=== PATIENT | female | born 1990 | race Caucasian/White ===

== ENCOUNTER 2020-03-12 09:23 | Emergency (ER) | payer BC ==
--- NOTE | 2020-03-12 09:51 | EDM.PDOC ---
ED HPI GENERAL MEDICAL PROBLEM - General Chief Complaint: Skin Complaint Stated Complaint: R BREAST PAIN, MASTITIS? Time Seen by Provider: 03/12/20 09:50 Source of Information: Reports: Patient History Limitations: Reports: No Limitations - History of Present Illness INITIAL COMMENTS - FREE TEXT/NARRATIVE: 29-year-old female with right breast tenderness for the past several hours. She is actively breast-feeding her child, this is her fourth child and she has had mastitis twice previously with other children. Low-grade fever and mild chills but after placing some moist heat on the breast she did not get significant relief and its becoming more firm. It is acting just like her past mastitis problems. 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 Denies: Malaise HEENT: Reports: No Symptoms Respiratory: Denies: Shortness of Breath Cardiovascular: Denies: Chest Pain GI/Abdominal: Denies: Nausea, Vomiting Skin: Denies: Erythema (No erythema of the breast at this point) Neurological: Reports: No Symptoms ED EXAM, SKIN/RASH Exam: See Below Exam Limited By: No Limitations General Appearance: Alert, No Apparent Distress Head: Atraumatic Neck: Supple Respiratory/Chest: No Respiratory Distress Neurological: Alert, Oriented Psychiatric: Normal Affect, Normal Mood Skin: Warm, Dry Comments: Breast exam reveals some firmness and tenderness just above and medial to the areole of the right breast. It is not reddened or warm at this point. Course - Vital Signs Last Recorded V/S: Last Vital Signs Temp 99.3 F 03/12/20 09:39 Pulse 71 03/12/20 09:39 Resp 20 03/12/20 09:39 BP 119/71 03/12/20 09:39 Pulse Ox 100 03/12/20 09:39 - Re-Assessments/Exams Free Text/Narrative Re-Assessment/Exam: 03/12/20 10:00 Patient will be placed on Augmentin 875 twice daily for at least 5 days. Continue with moist heat to the breast and return if worsening despite treatment. Departure - Departure Time of Disposition: 10:11 Disposition: Home, Self-Care 01 Clinical Impression: Mastitis, right, acute - Discharge Information Instructions: Mastitis Referrals: PCP,None [Primary Care Provider] - Forms: ED Department Discharge Care Plan Goals: Take antibiotic twice daily for at least 5 days, continue with moist warm compresses and return if worsening despite treatment. Sepsis Event Note - Evaluation Sepsis Screening Result: No Definite Risk - Focused Exam Vital Signs: Vital Signs Temp Pulse Resp BP Pulse Ox 03/12/20 09:39 99.3 F 71 20 119/71 100 Date Exam was Performed: 03/12/20 Time Exam was Performed: 13:10
== END 2020-03-12 10:11 | disposition home or self-care (01) ==
LOC: JP.ED 09:23
DX: N61.0 Mastitis without abscess (principal)
CPT/HCPCS: 99283

== ENCOUNTER 2021-07-06 23:52 | Inpatient (IN) | payer BC ==
[2021-07-07] MEDS ORDERED: Penicillin G Potassium 5 MILLUNITS in Sodium Chloride 0.9% 50 ML IV ONE (00:14)
[2021-07-07] MEDS ORDERED: Lactated Ringers 500 ML IV ONE (00:38)
[2021-07-07] MEDS ORDERED: Sodium Chloride 0.9% 10 ML Syringe FLUSH PRN (00:38)
[2021-07-07] MEDS ORDERED: Ondansetron 4 MG/2 ML SDV IV PRN (00:38)
--- NOTE | 2021-07-07 00:46 | PCM.LDHP ---
L&D History of Present Illness - General Date of Service: 07/07/21 Admit Problem/Dx: Patient Status Order with Admit Dx/Problem 07/07/21 00:38 Patient Status [ADT] Routine Admission Diagnosis/Problem Admission Diagnosis/Problem Active labor Source of Information: Patient History Limitations: Reports: No Limitations - History of Present Illness Introduction:: 07/07/21 Patient started nestor at home around 1800 last night. She is a at 40 5/7 weeks of . She has had an uncomplicated . She entered care late around 20 weeks due to being a healthy lady with multiple pregnancies and desire for less intervention. She is GBS positive. HIV/hep B/C/RPR all NR. She is rubella non immune but declines all vaccinations. She is A positive blood type. She has had 4 previous vaginal births all uncomplicated. 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): - Past Surgical History HEENT Surgical History: Reports: Oral Surgery Social & Family History - Tobacco Use Tobacco Use Status *Q: Never Tobacco User Tobacco Use Within Last Twelve Months: No - Caffeine Use Caffeine Use: Reports: Soda - Alcohol Use Alcohol Use History: No Alcohol Use in Last Twelve Months: No H&P Review of Systems - Review of Systems: Review Of Systems: See Below General: Reports: No Symptoms HEENT: Reports: No Symptoms Pulmonary: Reports: No Symptoms Cardiovascular: Reports: No Symptoms Gastrointestinal: Reports: No Symptoms Genitourinary: Reports: No Symptoms Musculoskeletal: Reports: No Symptoms Skin: Reports: No Symptoms Psychiatric: Reports: No Symptoms Neurological: Reports: No Symptoms Hematologic/Lymphatic: Reports: No Symptoms Immunologic: Reports: No Symptoms L&D Exam - Exam Exam: See Below - OB Specific Contraction Duration (sec): 60-80 Contraction Frequency (min): 2-3 Contraction Intensity: Strong Movement: Active Heart Tones: Present Heart Tones per Min: 130 Heart Rate (FHR) Variability: Moderate (6-25 bpm) (broken strip due to movement of mother) Presentation: Vertex Estimated Weight: 9 lb - Exam General: Alert, Oriented HEENT: PERRLA, Conjunctiva Clear, Mucosa Moist & [place], Pupils Equal, Pupils Reactive Neck: Supple, Trachea Midline Lungs: Clear to Auscultation, Normal Respiratory Effort Cardiovascular: Regular Rate, Regular Rhythm GI/Abdominal Exam: Normal Bowel Sounds, Soft, Pelvis Stable Genitourinary: Normal external exam, Cervical dilitation Back Exam: Normal Inspection, Full Range of Motion Extremities: Normal Inspection, No Pedal Edema Skin: Warm, Dry, Intact Neurological: Cranial Nerves Intact, Reflexes Equal Bilateral Psychiatric: Alert, Normal Affect, Normal Mood - Problem List (1) Term SNOMED Code(s): 73041414 ICD Code: Z34.90 - ENCNTR FOR SUPRVSN OF NORMAL , UNSP, UNSP TRIMESTER Status: Acute Current Visit: Yes (2) Positive GBS test SNOMED Code(s): 224009098, 522345027 ICD Code: B95.1 - STREPTOCOCCUS, GROUP B, CAUSING DISEASES CLASSD ELSWHR Status: Acute Current Visit: Yes Problem List Initiated/Reviewed/Updated: Yes Orders Last 24hrs: Active Orders 24 hr Category Date Time Status Patient Status [ADT] Routine ADT 07/07/21 00:38 Active Antiembolic Devices [RC] .Routine Care 07/07/21 00:40 Active Communication Order [RC] ASDIRECTED Care 07/07/21 00:38 Active Heart Tones [RC] PER UNIT ROUTINE Care 07/07/21 00:38 Active Notify Provider Vital Signs [RC] PRN Care 07/07/21 00:39 Active Notify Provider [RC] PRN Care 07/07/21 00:38 Active Up ad Sheri [RC] ASDIRECTED Care 07/07/21 00:38 Active VTE/DVT Education [RC] Click to Edit Care 07/07/21 00:40 Active Vital Signs [RC] PER UNIT ROUTINE Care 07/07/21 00:38 Active Regular Diet [DIET] Diet 07/07/21 Breakfast Active CBC W/O DIFF,HEMOGRAM [HEME] Routine Lab 07/07/21 00:38 Ordered CORONAVIRUS COVID-19 RAPID [MOLEC] Routine Lab 07/07/21 00:40 Ordered DRUG SCREEN, URINE [URCHEM] Routine Lab 07/07/21 00:40 Ordered UA W/MICROSCOPIC [URIN] Routine Lab 07/07/21 00:39 Ordered Lactated Ringers [Ringers, Lactated] 500 ml Med 07/07/21 00:38 Ordered IV .BOLUS Ondansetron [Zofran] Med 07/07/21 00:38 Ordered 4 mg IV Q4H PRN Oxytocin/Normal Saline [Pitocin in NS 20 Units/1,000 ML Med 07/07/21 00:45 Ordered ] 20 unit in 1,000 ml IV ASDIRECTED Penicillin G Potassium [Pfizerpen] 5 millunits Med 07/07/21 00:14 Active Sodium Chloride 0.9% [Normal Saline] 50 ml IV ONETIME Sodium Chloride 0.9% [Saline Flush] Med 07/07/21 00:38 Ordered 10 ml FLUSH ASDIRECTED PRN DVT/VTE Prophylaxis Reflex [OM.PC] Routine Oth 07/07/21 00:38 Ordered Saline Lock Insert [OM.PC] Routine Oth 07/07/21 00:38 Ordered Resuscitation Status Routine Resus Stat 07/07/21 00:38 Ordered Medication Orders Penicillin G Potassium 5 (millunits/ Sodium Chloride) 50 mls @ 100 mls/hr IV ONETIME ONE Stop: 07/07/21 00:43 Last Admin: 07/07/21 00:33 Dose: 100 mls/hr Documented by: BHASKAR Lactated Ringer's (Ringers, Lactated) 500 mls @ 999 mls/hr IV .BOLUS ONE Stop: 07/07/21 01:08 Oxytocin/Sodium Chloride (Pitocin In Ns 20 Units/1,000 Ml) 20 unit in 1,000 mls @ 2,997 mls/hr IV ASDIRECTED NIRALI; Protocol Ondansetron HCl (Ondansetron 4 Mg/2 Ml Sdv) 4 mg IV Q4H PRN PRN Reason: Nausea/Vomiting Sodium Chloride (Sodium Chloride 0.9% 10 Ml Syringe) 10 ml FLUSH ASDIRECTED PRN PRN Reason: Keep Vein Open Assessment/Plan Comment:: 07/07/21 Assessment: here at 40 5/7 weeks with active labor Membranes intact Desires epidural\ GBS positive Plan: Antibiotics for GBS Anticipate
[2021-07-07] MEDS ORDERED: ePHEDrine 50 MG/ML SDV IVPUSH PRN (00:57)
[2021-07-07] MEDS ORDERED: Ropivacaine 100 ML ONE (01:13)
[2021-07-07] MEDS ORDERED: fentaNYL 100 MCG/2 ML SDV ONE (01:13)
[2021-07-07] MEDS ORDERED: Benzocaine 20% Top Spray 56 GM Bottle TOP ONE (02:31)
[2021-07-07] MEDS ORDERED: Witch Hazel Medicated Pads 100/Jar TOP PRN (02:31)
[2021-07-07] MEDS ORDERED: Lanolin 100% Cream 40 GM Tube TOP PRN (02:31)
[2021-07-07] MEDS ORDERED: Docusate Sodium 100 MG Cap PO PRN (02:31)
[2021-07-07] MEDS ORDERED: Acetaminophen 325 MG Tab, 50 Tab Bulk Bottle PO PRN (02:33)
[2021-07-07] MEDS ORDERED: Ibuprofen 200 MG Tab, 24 Tab Bulk Bottle PO PRN (02:33)
--- NOTE | 2021-07-07 02:40 | PCM.DEL ---
L & D Note - General Info Date of Service: 07/07/21 Mother's Due Date: 07/02/21 - Delivery Note Labor: Spontaneous Delivery Outcome: Livebirth Infant Delivery Method: Spontaneous Vaginal Delivery-Single Infant Delivery Mode: Spontaneous Presentation: Left Occiput Anterior (ELLIS) Nuchal Cord: None Anesthesia Type: Epidural Amniotic Fluid Description: Meconium Stained (light) Episiotomy Type: None Laceration: None Placenta: Intact, Spontaneous Cord: 3 Vessels Estimated Blood Loss: 100 Resuscitation Needed: No [place]: Bulb Syringe, [place] Used Provider: Ashleigh Dickens Score 1 min: 9 Score 5 min: 9 Second Stage Interventions: Reports: Second Nurse Reviewed Heart Tones, Encouragement Given, Pushing Effectively Delivery Comments (Free Text/Narrative):: 07/07/21 31 yo G5 now P5 at 40 5/7 weeks delivered viable male at 0214 today. She had spontaneous onset of labor last evening around 1800, contractions got more intense around 2100. She came to the hospital and was 5-6 cm around midnight with intact membranes. She received one dose of IV penicillin for GBS. She requested an epidural and right after placement was checked and was complete. We allowed her to labor down and get comfortable and then AROM was performed with light meconium fluid. She pushed through one contraction and had a baby boy in ELLIS position. There was no nuchal cord. He was delivered right onto mothers chest and cried spontaneously. Delayed cord clamping done for 2 minutes. Apgars 9, 9. Placenta delivered intact spontaneously at 0219 with 3 vessel cord. EBL 100 ml. She requested no pitocin for third stage management and this was not done due to no bleeding. FF @ U and flow is scant. There are no cervical or vaginal lacerations. She does have a few skin splits around her labia minora that did not require repair. Mother and baby both doing great. Stages of labor: 1: 5640-6096 2: 9310-0469 3: 2029-0233 - General Info Date of Service: 07/07/21 Functional Status: Reports: Pain Controlled - Review of Systems General: Reports: No Symptoms HEENT: Reports: No Symptoms Pulmonary: Reports: No Symptoms Cardiovascular: Reports: No Symptoms Gastrointestinal: Reports: No Symptoms Genitourinary: Reports: No Symptoms Musculoskeletal: Reports: Other (weakness from epidural) Skin: Reports: No Symptoms Neurological: Reports: No Symptoms Psychiatric: Reports: No Symptoms - Patient Data Weight - Most Recent: 88.451 kg Lab Results Last 24 Hours: Laboratory Results - last 24 hr 07/07/21 07/07/21 07/07/21 Range/Units 00:16 00:39 00:40 WBC 10.8 (4.5-11.0) K/uL RBC 4.26 (3.30-5.50) M/uL Hgb 12.3 (12.0-15.0) g/dL Hct 36.8 (36.0-48.0) % MCV 86 (80-98) fL MCH 29 (27-31) pg MCHC 33 (32-36) % Plt Count 198 (150-400) K/uL Urine Color Yellow (YELLOW) Urine Appearance Cloudy A (CLEAR) Urine pH 6.0 (5.0-8.0) Ur Specific [place] >= 1.030 (1.008-1.030) Urine Protein Negative (NEGATIVE) mg/dL Urine Glucose (UA) Negative (NEGATIVE) mg/dL Urine Ketones Negative (NEGATIVE) mg/dL Urine Occult Blood Trace-intact H (NEGATIVE) Urine Nitrite Negative (NEGATIVE) Urine Bilirubin Negative (NEGATIVE) Urine Urobilinogen 0.2 (0.2-1.0) EU/dL Ur Leukocyte Esterase Moderate H (NEGATIVE) Urine RBC 0-5 (0-5) Urine WBC 75-100 H (0-5) Ur Epithelial Cells Moderate Amorphous Sediment Few Urine Bacteria Many Urine Mucus Few Urine Opiates Screen Negative (NEGATIVE) Ur Oxycodone Screen Negative (NEGATIVE) Urine Methadone Screen Negative (NEGATIVE) Ur Propoxyphene Screen Negative (NEGATIVE) Ur Barbiturates Screen Negative (NEGATIVE) Ur Tricyclics Screen Negative (NEGATIVE) Ur Phencyclidine Scrn Negative (NEGATIVE) Ur Amphetamine Screen Negative (NEGATIVE) U Methamphetamines Scrn Negative (NEGATIVE) Urine MDMA Screen Negative (NEGATIVE) U Benzodiazepines Scrn Negative (NEGATIVE) U Cocaine Metab Screen Negative (NEGATIVE) U Marijuana (THC) Screen Negative (NEGATIVE) SARS CoV-2 RNA Rapid AUBREE 07/07/21 Range/Units 00:40 WBC (4.5-11.0) K/uL RBC (3.30-5.50) M/uL Hgb (12.0-15.0) g/dL Hct (36.0-48.0) % MCV (80-98) fL MCH (27-31) pg MCHC (32-36) % Plt Count (150-400) K/uL Urine Color (YELLOW) Urine Appearance (CLEAR) Urine pH (5.0-8.0) Ur Specific [place] (1.008-1.030) Urine Protein (NEGATIVE) mg/dL Urine Glucose (UA) (NEGATIVE) mg/dL Urine Ketones (NEGATIVE) mg/dL Urine Occult Blood (NEGATIVE) Urine Nitrite (NEGATIVE) Urine Bilirubin (NEGATIVE) Urine Urobilinogen (0.2-1.0) EU/dL Ur Leukocyte Esterase (NEGATIVE) Urine RBC (0-5) Urine WBC (0-5) Ur Epithelial Cells Amorphous Sediment Urine Bacteria Urine Mucus Urine Opiates Screen (NEGATIVE) Ur Oxycodone Screen (NEGATIVE) Urine Methadone Screen (NEGATIVE) Ur Propoxyphene Screen (NEGATIVE) Ur Barbiturates Screen (NEGATIVE) Ur Tricyclics Screen (NEGATIVE) Ur Phencyclidine Scrn (NEGATIVE) Ur Amphetamine Screen (NEGATIVE) U Methamphetamines Scrn (NEGATIVE) Urine MDMA Screen (NEGATIVE) U Benzodiazepines Scrn (NEGATIVE) U Cocaine Metab Screen (NEGATIVE) U Marijuana (THC) Screen (NEGATIVE) SARS CoV-2 RNA Rapid AUBREE Negative Med Orders - Current: Current Medications Benzocaine (Benzocaine 20% Top [place] 56 Gm Bottle) 0 gm TOP ONETIME ONE Stop: 07/07/21 02:32 Docusate Sodium (Docusate Sodium 100 Mg Cap) 100 mg PO BID PRN PRN Reason: Constipation Emollient Ointment (Lanolin 100% Cream 40 Gm Tube) 40 gm TOP ASDIRECTED PRN PRN Reason: Other Ephedrine Sulfate (Ephedrine 50 Mg/Ml Sdv) 10 mg IVPUSH ASDIRECTED PRN PRN Reason: Hypotension Oxytocin/Sodium Chloride (Pitocin In Ns 20 Units/1,000 Ml) 20 unit in 1,000 mls @ 2,997 mls/hr IV ASDIRECTED NIRALI; Protocol Ondansetron HCl (Ondansetron 4 Mg/2 Ml Sdv) 4 mg IV Q4H PRN PRN Reason: Nausea/Vomiting Sodium Chloride (Sodium Chloride 0.9% 10 Ml Syringe) 10 ml FLUSH ASDIRECTED PRN PRN Reason: Keep Vein Open Witch Becca (Witch Becca Medicated Pads 100/Jar) 1 pad TOP ASDIRECTED PRN PRN Reason: Other Discontinued Medications Fentanyl (Fentanyl 100 Mcg/2 Ml Sdv) Confirm Administered Dose 100 mcg .ROUTE .STK-MED ONE Stop: 07/07/21 01:14 Penicillin G Potassium 5 (millunits/ Sodium Chloride) 50 mls @ 100 mls/hr IV ONETIME ONE Stop: 07/07/21 00:43 Last Admin: 07/07/21 00:33 Dose: 100 mls/hr Documented by: Lactated Ringer's (Ringers, Lactated) 500 mls @ 999 mls/hr IV .BOLUS ONE Stop: 07/07/21 01:08 Last Admin: 07/07/21 00:55 Dose: 999 mls/hr Documented by: Ropivacaine (Naropin 0.2%) Confirm Administered Dose 100 mls @ as directed .ROUTE .STK-MED ONE Stop: 07/07/21 01:14 - Exam General: Alert, Oriented HEENT: Pupils Equal, Pupils Reactive, Mucous Membr. Moist/Cane Beds Neck: Supple Lungs: Clear to Auscultation, Normal Respiratory Effort Cardiovascular: Regular Rate, Regular Rhythm GI/Abdominal Exam: Normal Bowel Sounds, Soft, Pelvis Stable (Female) Exam: Normal External Exam, Normal Bimanual Exam, Cervical Dilatation, Vaginal Bleeding. No: Cervical Lesions, Vaginal Tears Back Exam: Normal Inspection, Full Range of Motion Extremities: Normal Inspection, Normal Range of Motion, Non-Tender, No Pedal Edema, Normal Capillary Refill Skin: Warm, Dry, Intact Neurological: No New Focal Deficit Psy/Mental Status: Alert, Normal Affect, Normal Mood - Problem List & Annotations (1) Term SNOMED Code(s): 39996775 Code(s): Z34.90 - ENCNTR FOR SUPRVSN OF NORMAL , UNSP, UNSP TRIMESTER Status: Acute Current Visit: Yes (2) Positive GBS test SNOMED Code(s): 072103301, 132434744 Code(s): B95.1 - STREPTOCOCCUS, GROUP B, [facility] Status: Acute Current Visit: Yes (3) Normal vaginal delivery SNOMED Code(s): 88474472, 698660931 Code(s): O80 - ENCOUNTER FOR FULL-TERM UNCOMPLICATED DELIVERY Status: Acute Current Visit: Yes (4) started SNOMED Code(s): 347011371 Code(s): DGT3036 - Status: Acute Current Visit: Yes - Problem List Review Problem List Initiated/Reviewed/Updated: Yes - My Orders Last 24 Hours: My Active Orders 07/07/21 00:38 Patient Status [ADT] Routine Communication Order [RC] ASDIRECTED Heart Tones [RC] PER UNIT ROUTINE Notify Provider [RC] PRN Up ad Sheri [RC] ASDIRECTED Vital Signs [RC] PER UNIT ROUTINE Ondansetron [Zofran] 4 mg IV Q4H PRN Sodium Chloride 0.9% [Saline Flush] 10 ml FLUSH ASDIRECTED PRN DVT/VTE Prophylaxis Reflex [OM.PC] Routine Saline Lock Insert [OM.PC] Routine Resuscitation Status Routine 07/07/21 00:39 Notify Provider Vital Signs [RC] PRN 07/07/21 00:40 Antiembolic Devices [RC] .Routine VTE/DVT Education [RC] Click to Edit 07/07/21 00:45 Oxytocin/Normal Saline [Pitocin in NS 20 Units/1,000 ML] 20 unit in 1,000 ml IV ASDIRECTED 07/07/21 00:57 ePHEDrine [ePHEDrine sulfate] 10 mg IVPUSH ASDIRECTED PRN 07/07/21 02:31 Patient Status [ADT] Routine Vital Signs [RC] PFP Consult to Cae Engineer [CONS] Routine Benzocaine [Euqx-N-Kyuotpy 20% [place]] See Dose Instructions TOP ONETIME ONE Docusate Sodium [Colace] 100 mg PO BID PRN Lanolin [Lansinoh HPA] 40 gm TOP ASDIRECTED PRN witch Becca [Tucks] 1 pad TOP ASDIRECTED PRN Assess Lochia [WOMSER] Per Unit Routine Assess Uterine Involution [WOMSER] Per Unit Routine 07/07/21 02:32 Ice Therapy [OM.PC] Per Unit Routine Sitz Bath [OM.PC] Per Unit Routine 07/07/21 02:33 Acetaminophen [Tylenol Bulk Bottle] See Dose Instructions PO Q4H PRN Ibuprofen [Motrin Bulk Bottle] 600 mg PO Q6H PRN 07/07/21 Breakfast Regular Diet [DIET] 07/07/21 10:00 CBC WITH AUTO DIFF [HEME] Timed - Assessment Assessment:: 07/07/21 with NSVE at 40 5/7 weeks No lacerations GBS positive, 1 dose of antibiotics Light meconium fluid started FF and bleeding scant, EBL 100 ml, declined pitocin Rubella non immune, declines vaccinations A positive blood type - Plan Plan:: 07/07/21 Assessment: here at 40 5/7 weeks with active labor Membranes intact Desires epidural\ GBS positive Plan: Antibiotics for GBS Anticipate 07/07/21 Routine cares support Anticipate 48 hour stay for GBS
[2021-07-07] MEDS ORDERED: ePHEDrine 50 MG/ML SDV IV PRN (05:02)
[2021-07-07] MEDS ORDERED: Ropivacaine 100 ML EPIDUR SCH (06:00)
[2021-07-07] MEDS ORDERED: Naloxone 0.4 MG/ML SDV IVPUSH PRN (06:00)
[2021-07-07] MEDS ORDERED: diphenhydrAMINE 50 MG/ML SDV IVPUSH PRN (06:00)
[2021-07-07] MEDS ORDERED: Benzocaine 20% Top Spray 56 GM Bottle TOP PRN (07:01)
--- NOTE | 2021-07-07 10:38 | PROC ---
DATE OF PROCEDURE: 07/07/2021 SURGEON: Paolo Vides CRNA NAME OF PROCEDURE: Placement of labor epidural. This 31-year-old is in labor and has been requesting an epidural be placed. She has no allergies to any medications we will be using and has had epidurals in the past and understands the risks and benefits. She is placed in a sitting position. Her back was prepped with Betadine x3. A 2 mL injection of 1% Xylocaine was placed at approximately L3-4. A 17-gauge Tuohy needle was placed in the epidural space loss of resistance technique. An epidural catheter was then threaded 3 to 4 cm into the epidural space. A test dose of 100 mcg of fentanyl and 5 mL of 0.2% ropivacaine are given. After several minutes, she is then given a bolus of 10 mL of 0.2% ropivacaine and placed on a ropivacaine infusion of 0.2% at 12 mL/hour. This will be adjusted according to her needs. The patient suffered no discomfort. After the test dose she showed positive effects of being comfortable during her labor pain. No further anesthesia requirements unless requested. Paolo Vides CRNA /[id number]
[2021-07-08] MEDS ORDERED: Lactated Ringers 1,000 ML IV ONE (09:04)
--- NOTE | 2021-07-08 09:41 | PCM.PNPP ---
- General Info Date of Service: 07/08/21 Functional Status: Reports: Pain Controlled - Review of Systems General: Reports: No Symptoms HEENT: Reports: Headaches Pulmonary: Reports: No Symptoms Cardiovascular: Reports: No Symptoms Gastrointestinal: Reports: No Symptoms Genitourinary: Reports: No Symptoms Musculoskeletal: Reports: No Symptoms Skin: Reports: No Symptoms Neurological: Reports: Headache, Other (ringing in ears) Psychiatric: Reports: No Symptoms - General Info Date of Service: 07/08/21 - Patient Data Vital Signs - Most Recent: Last Vital Signs Temp 36.2 C 07/08/21 07:00 Pulse 75 07/08/21 07:00 Resp 16 07/08/21 07:00 BP 101/61 07/08/21 07:00 Pulse Ox 98 07/08/21 07:00 Weight - Most Recent: 88.451 kg I&O - Last 24 Hours: Intake & Output 07/07/21 07/08/21 07/08/21 22:59 06:59 14:59 Intake Total 900 Balance 900 Lab Results - Last 24 Hours: Laboratory Results - last 24 hr 07/07/21 Range/Units 10:00 WBC 15.0 H (4.5-11.0) K/uL RBC 4.01 (3.30-5.50) M/uL Hgb 11.1 L (12.0-15.0) g/dL Hct 33.9 L (36.0-48.0) % MCV 85 (80-98) fL MCH 28 (27-31) pg MCHC 33 (32-36) % Plt Count 165 (150-400) K/uL Neut % (Auto) 83.6 H (36-66) % Lymph % (Auto) 9.6 L (24-44) % [place] % (Auto) 5.8 (2-6) % Eos % (Auto) 0.9 L (2-4) % Baso % (Auto) 0.1 (0-1) % Med Orders - Current: Current Medications Acetaminophen (Acetaminophen 325 Mg Tab, 50 Tab Bulk Bottle) 0 mg PO Q4H PRN PRN Reason: Pain Last Admin: 07/07/21 10:29 Dose: 325 mg Documented by: Benzocaine (Benzocaine 20% Top [place] 56 Gm Bottle) 0 gm TOP Q4H PRN PRN Reason: PERINEAL PAIN Diphenhydramine HCl (Diphenhydramine 50 Mg/Ml Sdv) 50 mg IVPUSH Q6H PRN PRN Reason: ITCHING Docusate Sodium (Docusate Sodium 100 Mg Cap) 100 mg PO BID PRN PRN Reason: Constipation Emollient Ointment (Lanolin 100% Cream 40 Gm Tube) 40 gm TOP ASDIRECTED PRN PRN Reason: Other Oxytocin/Sodium Chloride (Pitocin In Ns 20 Units/1,000 Ml) 20 unit in 1,000 mls @ 2,997 mls/hr IV ASDIRECTED [facility]; Protocol Ropivacaine (Naropin 0.2%) 100 mls @ 0 mls/hr EPIDUR ASDIRECTED [facility]; Protocol Last Admin: 07/07/21 01:44 Dose: 12 ml/hr, 12 mls/hr Documented by: Naloxone HCl 0.4 mg/ Sodium (Chloride) 1,001 mls @ 0 mls/hr IV ASDIRECTED PRN; Protocol PRN Reason: ITCHING Lactated Ringer's (Ringers, Lactated) 1,000 mls @ 999 mls/hr IV BOLUS ONE Stop: 07/08/21 10:04 Ibuprofen (Ibuprofen 200 Mg Tab, 24 Tab Bulk Bottle) 600 mg PO Q6H PRN PRN Reason: Pain Last Admin: 07/07/21 10:29 Dose: 600 mg Documented by: Naloxone HCl (Naloxone 0.4 Mg/Ml Sdv) 0.1 mg IVPUSH Q5M PRN PRN Reason: IF RESP RATE LESS THAN 6 Ondansetron HCl (Ondansetron 4 Mg/2 Ml Sdv) 4 mg IV Q4H PRN PRN Reason: Nausea/Vomiting Sodium Chloride (Sodium Chloride 0.9% 10 Ml Syringe) 10 ml FLUSH ASDIRECTED PRN PRN Reason: Keep Vein Open Witch Becca (Witch Becca Medicated Pads 100/Jar) 1 pad TOP ASDIRECTED PRN PRN Reason: Other Discontinued Medications Benzocaine (Benzocaine 20% Top [place] 56 Gm Bottle) 0 gm TOP ONETIME ONE Stop: 07/07/21 02:32 Last Admin: 07/07/21 10:29 Dose: Not Given Documented by: Ephedrine Sulfate (Ephedrine 50 Mg/Ml Sdv) 10 mg IVPUSH ASDIRECTED PRN PRN Reason: Hypotension Ephedrine Sulfate (Ephedrine 50 Mg/Ml Sdv) 5 - 10 mg IV ASDIRECTED PRN PRN Reason: Systolic BP less than 100 Fentanyl (Fentanyl 100 Mcg/2 Ml Sdv) Confirm Administered Dose 100 mcg .ROUTE .STK-MED ONE Stop: 07/07/21 01:14 Penicillin G Potassium 5 (millunits/ Sodium Chloride) 50 mls @ 100 mls/hr IV ONETIME ONE Stop: 07/07/21 00:43 Last Admin: 07/07/21 00:33 Dose: 100 mls/hr Documented by: Lactated Ringer's (Ringers, Lactated) 500 mls @ 999 mls/hr IV .BOLUS ONE Stop: 07/07/21 01:08 Last Admin: 07/07/21 00:55 Dose: 999 mls/hr Documented by: Ropivacaine (Naropin 0.2%) Confirm Administered Dose 100 mls @ as directed .ROUTE .STK-MED ONE Stop: 07/07/21 01:14 - Interaction Disposition, : [place] in Room with Family Infant Interaction: Holding Infant Infant Feeding: Breastfed ; Nursed Well Support Person: - Recovery Exam Fundal Tone: Firm Fundal Level: At Umbilicus Fundal Placement: Midline Lochia Amount: Scant Lochia Color: Rubra/Red Perineum Description: Intact, Minimal Bruising/Swelling Episiotomy/Laceration: None Bladder Status: Voiding Urinary Elimination: Voided - Exam General: Alert, Oriented HEENT: Pupils Equal, Pupils Reactive, Mucous Membr. Moist/[place] Neck: Supple Lungs: Clear to Auscultation, Normal Respiratory Effort Cardiovascular: Regular Rate, Regular Rhythm GI/Abdominal Exam: Normal Bowel Sounds, Soft, Non-Tender, No Distention, Pelvis Stable Extremities: Normal Inspection, Normal Range of Motion, Non-Tender, No Pedal Edema, Normal Capillary Refill Skin: Warm, Dry, Intact Neurological: No New Focal Deficit, Normal Gait, Normal Speech, Normal Tone, Strength Equal Bilateral, Sensation Intact Psy/Mental Status: Alert, Normal Affect, Normal Mood - Problem List & Annotations (1) Term SNOMED Code(s): 77428862 Code(s): Z34.90 - ENCNTR FOR SUPRVSN OF NORMAL , UNSP, UNSP TRIMESTER Status: Acute Current Visit: Yes (2) Positive GBS test SNOMED Code(s): 678311784, 344328095 Code(s): B95.1 - STREPTOCOCCUS, GROUP B, CAUSING DISEASES CLASSD [id number] Status: Acute Current Visit: Yes (3) Normal vaginal delivery SNOMED Code(s): 50842636, 054589634 Code(s): O80 - ENCOUNTER FOR FULL-TERM UNCOMPLICATED DELIVERY Status: Acute Current Visit: Yes (4) started SNOMED Code(s): 204492029 Code(s): OEU3139 - Status: Acute Current Visit: Yes (5) Spinal headache SNOMED Code(s): 185617466 Code(s): G97.1 - OTHER REACTION TO SPINAL AND LUMBAR PUNCTURE Status: Acute Current Visit: Yes - Problem List Review Problem List Initiated/Reviewed/Updated: Yes - My Orders Last 24 Hours: My Active Orders 07/07/21 09:49 Peripheral IV Discontinue [OM.PC] Routine 07/07/21 12:12 CULTURE URINE [RM] Routine 07/08/21 09:04 Lactated Ringers [Ringers, Lactated] 1,000 ml IV BOLUS 07/08/21 09:06 Consult to Physician [CONS] Urgent 07/08/21 09:07 Notify Provider Consults [RC] ASDIRECTED - Assessment Assessment:: 07/07/21 with NSVE at 40 5/7 weeks No lacerations GBS positive, 1 dose of antibiotics Light meconium fluid started FF and bleeding scant, EBL 100 ml, declined pitocin Rubella non immune, declines vaccinations A positive blood type 07/08/21 PP day 2 FF and bleeding light going very well Hgb down to 11.1 post delivery Patient has a post epidural headache, worsens with sitting up or standing, reports a pressure in her head that is constant, some ringing in her ears with people talking, AVSS - Plan Plan:: 07/07/21 Assessment: here at 40 5/7 weeks with active labor Membranes intact Desires epidural\ GBS positive Plan: Antibiotics for GBS Anticipate 07/07/21 Routine cares support Anticipate 48 hour stay for GBS 07/08/21 Routine cares Continue support [employer] here to administer blood patch Anticipate discharge tomorrow if all is well
[2021-07-08] MEDS ORDERED: Acetaminophen/Caffeine 500-65 MG Tab PO STA (10:21)
--- NOTE | 2021-07-09 08:24 | PCM.PNPP ---
- General Info Date of Service: 07/09/21 Functional Status: Reports: Pain Controlled - Review of Systems General: Reports: No Symptoms HEENT: Reports: No Symptoms Pulmonary: Reports: No Symptoms Cardiovascular: Reports: No Symptoms Gastrointestinal: Reports: No Symptoms Genitourinary: Reports: No Symptoms Musculoskeletal: Reports: No Symptoms Skin: Reports: No Symptoms Neurological: Reports: No Symptoms Psychiatric: Reports: No Symptoms - General Info Date of Service: 07/09/21 - Patient Data Vital Signs - Most Recent: Last Vital Signs Temp 36.9 C 07/09/21 07:21 Pulse 61 07/09/21 07:21 Resp 18 07/09/21 07:21 BP 98/55 L 07/09/21 07:21 Pulse Ox 98 07/09/21 07:21 Weight - Most Recent: 88.451 kg Micro Results - Last 24 Hours: Microbiology 07/07/21 12:12 Urine Culture - Preliminary Urine, Clean Catch MIXED POSITIVE JACQUES DAY 1 Med Orders - Current: Current Medications Acetaminophen (Acetaminophen 325 Mg Tab, 50 Tab Bulk Bottle) 0 mg PO Q4H PRN PRN Reason: Pain Last Admin: 07/07/21 10:29 Dose: 325 mg Documented by: Benzocaine (Benzocaine 20% Top [place] 56 Gm Bottle) 0 gm TOP Q4H PRN PRN Reason: PERINEAL PAIN Diphenhydramine HCl (Diphenhydramine 50 Mg/Ml Sdv) 50 mg IVPUSH Q6H PRN PRN Reason: ITCHING Docusate Sodium (Docusate Sodium 100 Mg Cap) 100 mg PO BID PRN PRN Reason: Constipation Emollient Ointment (Lanolin 100% Cream 40 Gm Tube) 40 gm TOP ASDIRECTED PRN PRN Reason: Other Oxytocin/Sodium Chloride (Pitocin In Ns 20 Units/1,000 Ml) 20 unit in 1,000 mls @ 2,997 mls/hr IV ASDIRECTED [facility]; Protocol Ropivacaine (Naropin 0.2%) 100 mls @ 0 mls/hr EPIDUR ASDIRECTED [facility]; Protocol Last Admin: 07/07/21 01:44 Dose: 12 ml/hr, 12 mls/hr Documented by: Naloxone HCl 0.4 mg/ Sodium (Chloride) 1,001 mls @ 0 mls/hr IV ASDIRECTED PRN; Protocol PRN Reason: ITCHING Ibuprofen (Ibuprofen 200 Mg Tab, 24 Tab Bulk Bottle) 600 mg PO Q6H PRN PRN Reason: Pain Last Admin: 07/07/21 10:29 Dose: 600 mg Documented by: Naloxone HCl (Naloxone 0.4 Mg/Ml Sdv) 0.1 mg IVPUSH Q5M PRN PRN Reason: IF RESP RATE LESS THAN 6 Ondansetron HCl (Ondansetron 4 Mg/2 Ml Sdv) 4 mg IV Q4H PRN PRN Reason: Nausea/Vomiting Sodium Chloride (Sodium Chloride 0.9% 10 Ml Syringe) 10 ml FLUSH ASDIRECTED PRN PRN Reason: Keep Vein Open Witch Becca (Witch Becca Medicated Pads 100/Jar) 1 pad TOP ASDIRECTED PRN PRN Reason: Other Discontinued Medications Acetaminophen/Caffeine (Acetaminophen/Caffeine 500-65 Mg Tab) 2 tab PO NOW STA Stop: 07/08/21 10:22 Last Admin: 07/08/21 10:29 Dose: 2 tab Documented by: Benzocaine (Benzocaine 20% Top [place] 56 Gm Bottle) 0 gm TOP ONETIME ONE Stop: 07/07/21 02:32 Last Admin: 07/07/21 10:29 Dose: Not Given Documented by: Ephedrine Sulfate (Ephedrine 50 Mg/Ml Sdv) 10 mg IVPUSH ASDIRECTED PRN PRN Reason: Hypotension Ephedrine Sulfate (Ephedrine 50 Mg/Ml Sdv) 5 - 10 mg IV ASDIRECTED PRN PRN Reason: Systolic BP less than 100 Fentanyl (Fentanyl 100 Mcg/2 Ml Sdv) Confirm Administered Dose 100 mcg .ROUTE .STK-MED ONE Stop: 07/07/21 01:14 Penicillin G Potassium 5 (millunits/ Sodium Chloride) 50 mls @ 100 mls/hr IV ONETIME ONE Stop: 07/07/21 00:43 Last Admin: 07/07/21 00:33 Dose: 100 mls/hr Documented by: Lactated Ringer's (Ringers, Lactated) 500 mls @ 999 mls/hr IV .BOLUS ONE Stop: 07/07/21 01:08 Last Admin: 07/07/21 00:55 Dose: 999 mls/hr Documented by: Ropivacaine (Naropin 0.2%) Confirm Administered Dose 100 mls @ as directed .ROUTE .STK-MED ONE Stop: 07/07/21 01:14 Lactated Ringer's (Ringers, Lactated) 1,000 mls @ 999 mls/hr IV BOLUS ONE Stop: 07/08/21 10:04 Last Admin: 07/08/21 08:30 Dose: 999 mls/hr Documented by: - Infant Interaction Disposition, : [place] in Room with Family Infant Interaction: Holding Feeding: Breastfed ; Nursed Well Support Person: - Recovery Exam Fundal Tone: Firm Fundal Level: 1 Fingerbreadths Below Umbilicus Fundal Placement: Midline Lochia Amount: Scant Lochia Color: Rubra/Red Perineum Description: Intact, Minimal Bruising/Swelling Episiotomy/Laceration: None Bladder Status: Voiding Urinary Elimination: Voided - Exam General: Alert, Oriented HEENT: Pupils Equal, Pupils Reactive, Mucous Membr. Moist/[place] Neck: Supple Lungs: Clear to Auscultation, Normal Respiratory Effort Cardiovascular: Regular Rate, Regular Rhythm GI/Abdominal Exam: Normal Bowel Sounds, Soft, Non-Tender, Pelvis Stable Extremities: Normal Inspection, Normal Range of Motion, Non-Tender, No Pedal Edema, Normal Capillary Refill Skin: Warm, Dry, Intact Neurological: No New Focal Deficit Psy/Mental Status: Alert, Normal Affect, Normal Mood - Problem List & Annotations (1) Term SNOMED Code(s): 19197464 Code(s): Z34.90 - ENCNTR FOR SUPRVSN OF NORMAL , UNSP, UNSP TRIMESTER Status: Acute Current Visit: Yes (2) Positive GBS test SNOMED Code(s): 803181450, 407640878 Code(s): B95.1 - STREPTOCOCCUS, GROUP B, [facility] Status: Acute Current Visit: Yes (3) Normal vaginal delivery SNOMED Code(s): 55628460, 531125289 Code(s): O80 - ENCOUNTER FOR FULL-TERM UNCOMPLICATED DELIVERY Status: Acute Current Visit: Yes (4) started SNOMED Code(s): 612096978 Code(s): CJS5758 - Status: Acute Current Visit: Yes (5) Spinal headache SNOMED Code(s): 072445721 Code(s): G97.1 - OTHER REACTION TO SPINAL AND LUMBAR PUNCTURE Status: Acute Current Visit: Yes - Problem List Review Problem List Initiated/Reviewed/Updated: Yes - My Orders Last 24 Hours: My Active Orders 07/08/21 09:06 Consult to Physician [CONS] Urgent 07/08/21 09:07 Notify Provider Consults [RC] ASDIRECTED - Assessment Assessment:: 07/07/21 with NSVE at 40 5/7 weeks No lacerations GBS positive, 1 dose of antibiotics Light meconium fluid started FF and bleeding scant, EBL 100 ml, declined pitocin Rubella non immune, declines vaccinations A positive blood type 07/08/21 PP day 2 FF and bleeding light going very well Hgb down to 11.1 post delivery Patient has a post epidural headache, worsens with sitting up or standing, reports a pressure in her head that is constant, some ringing in her ears with people talking, AVSS 07/09/21 Doing well Spinal headache gone after blood patch, patient feels very good today well FF and bleeding light - Plan Plan:: 07/07/21 Assessment: here at 40 5/7 weeks with active labor Membranes intact Desires epidural\ GBS positive Plan: Antibiotics for GBS Anticipate 07/07/21 Routine cares support Anticipate 48 hour stay for GBS 07/08/21 Routine cares Continue support [employer] DELIV[employer] AIDE here to administer blood patch Anticipate discharge tomorrow if all is well 07/09/21 Discharge home today 6 week check
--- NOTE | 2021-07-09 14:25 | PROC ---
DATE OF PROCEDURE: 07/08/2021 SURGEON: Paolo Vides CRNA NAME OF PROCEDURE: Epidural steroid injection. This 31-year-old was given an epidural for the delivery of the her baby at approximately 1 a.m. on July 07. All signs were clear that there was no tap. However, about 3 o'clock in the afternoon on the she started noticing that she had a headache. This progressed into a very uncomfortable headache that clearly went away when she was lying down and clearly came back when she was sitting up. I was called this morning to come in and assess. We agreed that the solution would be to do an epidural blood patch. I discussed the risks and benefits of this with the patient. She is understanding. She has had a liter of lactated Ringer's and will receive a second liter now following the procedure. She is placed in a sitting position. Her back was prepped with Betadine x3. A 3 mL skin wheal of 1% Xylocaine was injected at the same level as her epidural from the night before. A 17-gauge Tuohy needle was then placed into the epidural space using a loss of resistance technique. I was unable to aspirate blood, fluid, or air. The nurse stoney 20 mL of blood from her right antecubital and this was slowly injected and always checked for aspiration, which never occurred, and she was given a bolus of 20 mL and then it was flushed with 5 mL of normal saline. The needle was then removed and a Band-Aid applied to the puncture site. The patient tolerated the procedure well. She will receive the second liter of lactated Ringer's, and I will monitor her progress after this point. Paolo Vides CRNA /[id number]
== END 2021-07-09 09:33 | disposition home or self-care (01) | DRG 560 ==
LOC: JP.OBCHECK 23:52 → JP.OB 23:58 → JP.OBCHECK 07-07 00:29 → OBSVTOIN 07-07 02:14 → JP.MS 07-07 05:00
PROVIDERS: ADMIT Advanced Practice Midwife; ATTEND Advanced Practice Midwife
PROC: 10E0XZZ Delivery of Products of Conception, External Approach (ICD-10-PCS; principal; 2021-07-07)
PROC: 10907ZC Drainage of Amniotic Fluid, Therapeutic from Products of Conception, Via Natural or Artificial Opening (ICD-10-PCS; 2021-07-07)
PROC: 3E0R3BZ Introduction of Anesthetic Agent into Spinal Canal, Percutaneous Approach (ICD-10-PCS; 2021-07-07)
PROC: 3E0R3GC Introduction of Other Therapeutic Substance into Spinal Canal, Percutaneous Approach (ICD-10-PCS; 2021-07-08)
DX: O48.0 Post-term pregnancy (principal); Z3A.40 40 weeks gestation of pregnancy; Z37.0 Single live birth; O99.824 Streptococcus B carrier state complicating childbirth; O77.0 Labor and delivery complicated by meconium in amniotic fluid; Z20.822 Contact with and (suspected) exposure to COVID-19; O89.4 Spinal and epidural anesthesia-induced headache during the puerperium
CPT/HCPCS: 36415; 51701; 80305-QW; 81001; 85025; 85027; 87086; 99211; A9270-GY; J2540; J2795; J3010; J7120; U0002

== ENCOUNTER 2021-10-06 00:53 | Emergency (ER) | payer BC ==
--- NOTE | 2021-10-06 01:14 | EDM.PDOC ---
ED HPI GENERAL MEDICAL PROBLEM - General Chief Complaint: ENT Problem Stated Complaint: SORE THROAT Time Seen by Provider: 10/06/21 01:05 Source of Information: Reports: Patient History Limitations: Reports: No Limitations - History of Present Illness INITIAL COMMENTS - FREE TEXT/NARRATIVE: Rohini is a 31-year-old female presenting to the ED for evaluation of sore throat that started yesterday evening. The patient has not had any fever or chills but does have pain with swallowing. She has very minimal nasal congestion with scant rhinorrhea but not enough to potentially cause sore throat. She denies feeling tired or having any lymphadenopathy. She has had no nausea or vomiting, diarrhea, urinary symptoms, cough or shortness of breath. She denies any rash. 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: Other Medication(s) Throat Pain Score (Numeric/FACES): 4 - Related Data Allergies Allergy/AdvReac Type Severity Reaction Status Date / Time No Known Allergies Allergy Verified 10/06/21 01:05 Past Medical History HEENT History: Reports: None Cardiovascular History: Reports: None Respiratory History: Reports: None Gastrointestinal History: Reports: None Genitourinary History: Reports: None REFERRAL NURSE History: Reports: Musculoskeletal History: Reports: None Neurological History: Reports: None Psychiatric History: Reports: None Endocrine/Metabolic History: Reports: None Hematologic History: Reports: None Immunologic History: Reports: None Oncologic (Cancer) History: Reports: None Dermatologic History: Reports: None - Infectious Disease History Infectious Disease History: Reports: None - Past Surgical History HEENT Surgical History: Reports: Oral Surgery Social & Family History - Caffeine Use Caffeine Use: Reports: Soda ED ROS ENT - Review of Systems Review Of Systems: See Below Constitutional: Reports: No Symptoms HEENT: Reports: Throat Pain Respiratory: Reports: No Symptoms Cardiovascular: Reports: No Symptoms Endocrine: Reports: No Symptoms GI/Abdominal: Reports: No Symptoms : Reports: No Symptoms Musculoskeletal: Reports: No Symptoms Skin: Reports: No Symptoms Neurological: Reports: No Symptoms ED EXAM, ENT - Physical Exam Exam: See Below Exam Limited By: No Limitations General Appearance: Alert, No Apparent Distress Eye Exam: Bilateral Eye: EOMI, PERRL Nose: Normal Inspection, Normal Mucousa Mouth/Throat: Normal Gums, Normal Lips, Pharyngeal Erythema, Throat Pain, Tonsillar Erythema, Tonsillar Swelling. No: Muffled Voice, Oral Ulcers, Tonsillar Exudates, Uvular Edema Head: Atraumatic, Normocephalic Neck: Normal Inspection, Supple, Non-Tender, Full Range of Motion. No: Lymp hadenopathy (R), Lymphadenopathy (L) Respiratory/Chest: No Respiratory Distress, Lungs Clear, Normal Breath Sounds Cardiovascular: Normal Peripheral Pulses, Regular Rate, Rhythm, No Murmur Course - Vital Signs Last Recorded V/S: Last Vital Signs Temp Pulse 79 10/06/21 01:06 Resp 16 10/06/21 01:06 BP 129/82 10/06/21 01:06 Pulse Ox 98 10/06/21 01:06 - Orders/Labs/Meds Orders: Active Orders 24 hr Category Date Time Status CULTURE STREP A CONFIRMATION [] Stat Lab 10/06/21 01:10 Results STREP SCRN A RAPID W CULT CONF [] Stat Lab 10/06/21 01:10 Results Labs: Laboratory Tests 10/06/21 Range/Units 02:50 WBC 7.4 (4.5-11.0) K/uL RBC 4.68 (3.30-5.50) M/uL Hgb 13.4 D (12.0-15.0) g/dL Hct 41.2 (36.0-48.0) % MCV 88 (80-98) fL MCH 29 (27-31) pg MCHC 33 (32-36) % Plt Count 183 (150-400) K/uL Neut % (Auto) 69.0 H (36-66) % Lymph % (Auto) 16.1 L (24-44) % [place] % (Auto) 9.2 H (2-6) % Eos % (Auto) 5.4 H (2-4) % Baso % (Auto) 0.3 (0-1) % - Re-Assessments/Exams Free Text/Narrative Re-Assessment/Exam: 10/06/21 03:04 group A rapid strep test was negative. We proceeded with the CBC which shows a normal leukocyte count, hemoglobin, and platelet count. This likely signifies a viral pharyngitis so antibiotics unfortunately will not be very helpful. Symptomatic relief with Sucrets. Departure - Departure Time of Disposition: 03:05 Disposition: Home, Self-Care 01 Clinical Impression: Viral pharyngitis - Discharge Information Instructions: Sore Throat, [id number] Referrals: PCP,None [Primary Care Provider] - Forms: ED Department Discharge Care Plan Goals: Your work-up today shows a negative strep test and negative CBC indicating that this is likely a viral pharyngitis. Unfortunately antibiotics would not be very helpful. I recommend Sucrets, Chloraseptic, or Cepacol lozenges to help with the pain. The good news is a viral pharyngitis usually lasts less then bacterial pharyngitis. Tylenol or ibuprofen for pain. Sepsis Event Note (ED) - Focused Exam Vital Signs: Vital Signs Pulse Resp BP Pulse Ox 10/06/21 01:06 79 16 129/82 98 - Problem List & Annotations (1) Viral pharyngitis SNOMED Code(s): 6354503 Code(s): J02.9 - ACUTE PHARYNGITIS, UNSPECIFIED Status: Acute Priority: Low Current Visit: Yes - Problem List Review Problem List Initiated/Reviewed/Updated: Yes - My Orders Last 24 Hours: My Active Orders 10/06/21 01:10 CULTURE STREP A CONFIRMATION [RM] Stat STREP SCRN A RAPID W CULT CONF [RM] Stat - Assessment/Plan Last 24 Hours: My Active Orders 10/06/21 01:10 CULTURE STREP A CONFIRMATION [RM] Stat STREP SCRN A RAPID W CULT CONF [RM] Stat
== END 2021-10-06 03:54 | disposition home or self-care (01) ==
LOC: JP.ED 00:53
DX: J02.9 Acute pharyngitis, unspecified (principal)
CPT/HCPCS: 36415; 85025; 87081; 87880-QW; 99283